=== PATIENT | female | born 1995 | race Caucasian/White ===

== ENCOUNTER 2021-10-18 08:10 | Emergency (ER) | payer MEDICAID | END 2021-10-18 08:45 | disposition home or self-care (01) | LOC: JD.ED 08:10 | DX: H60.392 Other infective otitis externa, left ear (principal); Z88.0 Allergy status to penicillin; Z91.010 Allergy to peanuts; Z88.5 Allergy status to narcotic agent; Z88.8 Allergy status to other drugs, medicaments and biological substances | CPT/HCPCS: 99282; 99283 ==

== ENCOUNTER 2022-05-22 16:46 | Emergency (ER) | payer MEDICAID | END 2022-05-22 18:30 | LOC: JD.ED 16:46 | DX: Z53.21 Procedure and treatment not carried out due to patient leaving prior to being seen by health care provider (principal) ==

== ENCOUNTER 2022-05-29 23:20 | Emergency (ER) | payer MEDICAID ==
[2022-05-30] MEDS ORDERED: Acetaminophen/oxyCODONE 325-5 MG Tab PO ONE (00:11)
[2022-05-30] MEDS ORDERED: Clindamycin HCl 150 MG Cap PO ONE (00:11)
== END 2022-05-30 01:00 | disposition home or self-care (01) ==
LOC: JD.ED 05-30 00:10
DX: K08.89 Other specified disorders of teeth and supporting structures (principal)
CPT/HCPCS: 99282; A9270

== ENCOUNTER 2022-06-19 21:23 | Emergency (ER) | payer MEDICAID | END 2022-06-19 23:00 | disposition left against medical advice (07) | LOC: JD.ED 21:23 | DX: Z53.21 Procedure and treatment not carried out due to patient leaving prior to being seen by health care provider (principal) ==